=== PATIENT | female | born 1960 | race Caucasian/White ===

== ENCOUNTER 2024-04-17 09:46 | Emergency (ER) | payer MEDICARE ==
[~2024-04-17] VITALS: Ht 157.5 cm; Wt 81.8 kg
[2024-04-17 09:58] VITALS: TEMP 97.9
[2024-04-17] MEDS ORDERED: CEPHALEXIN500 M1 PO (10:22)
[2024-04-17] MEDS ORDERED: Cephalexin 500 MG CAP PO ONE (10:30)
[2024-04-17 10:37] VITALS: BP 173/77; PULSE 75
== END 2024-04-17 10:37 | disposition home or self-care (01) ==
LOC: COL.ER 09:46
DX: Z48.00 Encounter for change or removal of nonsurgical wound dressing (principal)